=== PATIENT | female | born 1935 | race Caucasian/White ===

== ENCOUNTER 2017-01-16 02:57 | Inpatient (IN) | payer OTHER ==
[2017-01-14 09:53] LABS: MANUAL DIFF NEEDED? NO; URINE MICRO REVIEW NEEDED? NO; URINE SOURCE CLEAN CATCH
[2017-01-14 10:10] LABS: BILIRUBIN URINE NEGATIVE (NEGATIVE); BLOOD URINE NEGATIVE (NEGATIVE); COLOR YELLOW; GLUCOSE URINE NEGATIVE (NEGATIVE); LEUKOCYTES URINE NEGATIVE (NEGATIVE); NITRITE URINE NEGATIVE (NEGATIVE); PROTEIN URINE TRACE mg/dL (NEGATIVE); SP GRAVITY URINE 1.018; TURBIDITY URINE CLEAR (CLEAR); UR EPITHELIAL CELLS <10 /HPF (<10); URINE BACTERIA 2+ /HPF; URINE RBC <10 /HPF (<10); URINE WBC <10 /HPF (<10); UROBILINOGEN URINE NORMAL (NORMAL)
[2017-01-14 10:16] LABS: BASO% 0.7 % (0.0-0.8); EOS# 0.63 X1000 (0.0-0.7); EOS% 8.8 % (0.0-10.0); HEMATOCRIT 42.8 % (37.0-47.0); LYMPH# 2.26 X1000 (1.2-3.4); LYMPH% 31.4 % (20.5-51.1); MCHC 32.7 g/dL (33-37); MCV 91.8 FL (81-99); MONO# 0.86 X1000 (0.11-0.59); MPV 9.5 FL (7.4-10.4); NEUT% 47.1 % (42.2-75.2); PLT 324 X1000 (130-400); RBC 4.66 XMIL (4.2-5.4)
--- NOTE | 2017-01-14 10:28 | Diag Imaging Result Document ---
PROCEDURE NAME: CHEST-2 VIEWS - 01/14/2017 CHEST X-RAY 2 VIEWS, 01/14/2017: COMPARISON: 11/08/2010. FINDINGS: There is suggestion of some infiltrate or scarring at the cardiac apex probably in the lingula. The right lung is clear. Heart size and pulmonary vascularity is normal. No pneumothorax or pleural effusion. IMPRESSION: Infiltrate or atelectasis in the lingula.
[2017-01-14 10:58] LABS: ALBUMIN 4.1 g/dL (3.5-5.0); CALCIUM 9.3 mg/dL (8.8-10.2); POTASSIUM 4.6 mmol/L (3.5-5.1); TOTAL BILIRUBIN 0.44 mg/dL (0.20-1.00); TOTAL PROTEIN 7.4 g/dL (6.3-8.3)
--- NOTE | 2017-01-14 13:22 | EKG Report ---
Test Performed on : 01/14/2017 08:49:35 AM Test Reason : PAT Blood Pressure : / mmHG Vent. Rate : 075 BPM Atrial Rate : 075 BPM P-R Int : 164 ms QRS Dur : 080 ms QT Int : 396 ms P-R-T Axes : 017 021 040 degrees QTc Int : 442 ms Normal sinus rhythm. Normal ECG When compared with ECG of 08-NOV-2010 12:22, Criteria for Septal infarct are no longer present Confirmed by Andrea London MD ([id number]) on 01/16/2017 9:56:33 PM
[2017-01-16] MEDS ORDERED: MEFOXIN 1 GM/NS 50 ML IV ONE (07:55)
[2017-01-16] MEDS ORDERED: ZOFRAN ONE ×2 (07:58→13:43)
[2017-01-16] MEDS ORDERED: ENTEREG ONE (07:58)
[2017-01-16] MEDS ORDERED: LR 2,000 ML ONE (07:59)
[2017-01-16] MEDS ORDERED: REGLAN ONE (08:36)
[2017-01-16] MEDS ORDERED: PEPCID ONE (08:36)
[2017-01-16] MEDS ORDERED: TRANSDERM-SCOP ONE (08:37)
[2017-01-16] MEDS ORDERED: SODIUM CHLORIDE 0.9% 10 ML ONE (09:19)
[2017-01-16] MEDS ORDERED: MARCAINE 0.25% PF ONE (09:19)
[2017-01-16] MEDS ORDERED: EXPAREL 1.3% ONE (09:20)
[2017-01-16] MEDS ORDERED: VERSED ONE (09:37)
[2017-01-16] MEDS: FLAGYL 500 MG/NS 100 ML IV SCH ×2 (10:35→10:55)
[2017-01-16] MEDS ORDERED: D5 1/2 NS 1,000 ML ONE (13:03)
[2017-01-16] MEDS ORDERED: FENTANYL ONE (13:06)
[2017-01-16] MEDS ORDERED: DIPRIVAN 1% ONE (13:07)
[2017-01-16] MEDS ORDERED: MORPHINE PCA ONE (13:11)
[2017-01-16] MEDS ORDERED: NEOSTIGMINE ONE (13:43)
[2017-01-16] MEDS ORDERED: LR 3,000 ML ONE (13:44)
[2017-01-16] MEDS ORDERED: OFIRMEV 1000 MG/ISOTONIC SOLN 100 ML ONE (13:44)
[2017-01-16] MEDS ORDERED: QUELICIN (DOSE) ONE (13:44)
[2017-01-16] MEDS ORDERED: ROBINUL ONE (13:44)
[2017-01-16] MEDS ORDERED: DECADRON ONE (13:44)
[2017-01-16] MEDS ORDERED: NORCURON ONE (13:44)
[2017-01-16] MEDS: MORPHINE ONE ×4 (14:03→14:36)
--- NOTE | 2017-01-16 17:28 | OPERATIVE NOTE ---
PROCEDURE DATE: 01/16/2017 PREOPERATIVE DIAGNOSIS: Sigmoid diverticulitis. POSTOPERATIVE DIAGNOSIS: Sigmoid diverticulitis. PROCEDURE: 1. Cystoscopy with placement of bilateral ureteral catheters by Dr. Flores. This will be covered in a separate operative note. 2. Exploratory laparotomy. 3. Sigmoid resection with 28 mm end-to-end anastomosis. PROCEDURE: On completion of cystoscopy and placement of bilateral ureteral catheters, the patient's abdomen and perineum was prepped and draped in the appropriate manner. She had undergone general endotracheal anesthesia with placement of a orogastric tube and a Jaffe catheter and ureteral catheters. An infraumbilical to midline incision was taken sharply down through skin and subcutaneous tissue. Fascia was incised in the midline and the peritoneum was entered. The viscera were packed superiorly. Immediately evident was a wadded up sigmoid colon that was quite redundant and fixed. The adhesions were taken down sharply along the white line of T[place]. The left ureteral catheter was palpated. Eventually the colon itself was straightened out proximally in an area of relatively devoid of diverticula. The colon was divided with a pursestring device. The distal colon was taken down with LigaSure instruments. On reaching the superior hemorrhoidal's, the vessels were controlled by doubled 0 silk and suture ligatures of 2-0 silk. The colon was subsequently further mobilized down past the pelvic brim and was divided with a TA- 45 stapler. The wound was irrigated. There appeared to be no bleeding. The anvil had been tied into the pursestring device proximally. Initial attempts at transanal EEA anastomosis were unsuccessful secondary to further redundance, so another 2 inches of distal sigmoid was taken down. Subsequent to this, a satisfactory EEA anastomosis was performed. There were two satisfactory donuts. The [place] test was negative. The wound was subsequently irrigated and after accounting for all laparotomy sponges, closure was initiated. The omentum was pulled down over the anastomosis. The peritoneum was closed in a single running layer of #1 Vicryl. The fascia was closed with interrupted #1 Maxon. Subcutaneous was debrided and closed with 3-0 Vicryl and the skin itself with stainless steel clips. Sterile dressings were applied. The ureteral catheters were removed intact and the same length, and the Jaffe was left indwelling. There was some bloody urine. The patient was subsequently awakened and extubated in the operating room and transferred to recovery. ESTIMATED BLOOD LOSS: About 200 mL.
[2017-01-16] MEDS ORDERED: NARCAN IV PRN (18:41)
[2017-01-16] MEDS ORDERED: ZOFRAN IV PRN (18:41)
[2017-01-16] MEDS ORDERED: MORPHINE PCA IV PRN (18:41)
[2017-01-16] MEDS ORDERED: BENADRYL IV PRN (18:41)
[2017-01-16] MEDS ORDERED: PHENERGAN IV PRN (18:41)
[2017-01-16] MEDS ORDERED: SODIUM CHLORIDE 0.9% INJ PRN (18:41)
[2017-01-16] MEDS: MEFOXIN 1 GM/D5W 50 ML IV SCH (18:50)
[2017-01-16] MEDS: GLUCOSAMINE 500 MG/CHONDROITIN 400 MG PO SCH (21:50)
[2017-01-16] MEDS: FLAGYL 1000 MG/NS 200 ML IV SCH (21:50)
[2017-01-16] MEDS: PERIDEX MT SCH (21:50)
[2017-01-16] MEDS: XALATAN 0.005% OPH SOLN LEFT EYE SCH (21:50)
[2017-01-17] MEDS: MEFOXIN 1 GM/D5W 50 ML IV SCH ×2 (02:06→10:11)
[2017-01-17] MEDS: D5 1/2 NS 1,000 ML IV SCH ×4 (02:13→14:23)
[2017-01-17] MEDS: FLAGYL 1000 MG/NS 200 ML IV SCH ×2 (04:37→14:24)
[2017-01-17 05:47] LABS: HEMATOCRIT 30.7 % (37.0-47.0); HEMOGLOBIN 10.1 g/dL (12.0-16.0); LYMPH% 6.4 % (20.5-51.1); MANUAL DIFF NEEDED? YES; MCH 30.1 PG (27-31); MCHC 32.9 g/dL (33-37); MCV 91.4 FL (81-99); MONO% 7.2 % (1.7-9.3); MPV 9.2 FL (7.4-10.4); NEUT% 86.4 % (42.2-75.2); PLT 267 X1000 (130-400); RBC 3.36 XMIL (4.2-5.4)
[2017-01-17 06:12] LABS: CALCIUM 7.7 mg/dL (8.8-10.2); POTASSIUM 4.5 mmol/L (3.5-5.1)
[2017-01-17 06:36] LABS: BANDS 4 % (0-1); HYPOCHROM 1+; LYMPHS 8 % (21-51); MONO 4 % (1-9)
[2017-01-17] MEDS ORDERED: QUININE SULFATE PO SCH (09:00)
[2017-01-17] MEDS: PERIDEX MT SCH ×2 (10:08→23:34)
[2017-01-17] MEDS: GLUCOSAMINE 500 MG/CHONDROITIN 400 MG PO SCH ×2 (10:09→23:35)
[2017-01-17] MEDS: AVAPRO PO SCH (10:09)
[2017-01-17] MEDS: MOBIC PO SCH (10:09)
[2017-01-17] MEDS: PREMARIN PO SCH (10:09)
[2017-01-17] MEDS: ENTEREG PO SCH ×2 (10:10→23:35)
[2017-01-17] MEDS: BENTYL PO SCH (10:10)
[2017-01-17] MEDS ORDERED: TYLENOL PO PRN (18:51)
[2017-01-17] MEDS: XALATAN 0.005% OPH SOLN LEFT EYE SCH (23:34)
[2017-01-17] MEDS: QUININE SULFATE PO SCH (23:35)
[2017-01-18] MEDS: D5 1/2 NS 1,000 ML IV SCH (01:00)
[2017-01-18 06:01] LABS: MANUAL DIFF NEEDED? NO
[2017-01-18 06:10] LABS: BASO% 0.2 % (0.0-0.8); EOS# 0.06 X1000 (0.0-0.7); EOS% 0.5 % (0.0-10.0); HEMATOCRIT 27.9 % (37.0-47.0); HEMOGLOBIN 8.8 g/dL (12.0-16.0); LYMPH# 2.96 X1000 (1.2-3.4); LYMPH% 26.4 % (20.5-51.1); MCHC 31.5 g/dL (33-37); MCV 95.2 FL (81-99); MONO# 0.87 X1000 (0.11-0.59); MONO% 7.8 % (1.7-9.3); MPV 9.4 FL (7.4-10.4); NEUT% 65.1 % (42.2-75.2); PLT 228 X1000 (130-400); RBC 2.93 XMIL (4.2-5.4)
[2017-01-18 06:26] LABS: CALCIUM 7.5 mg/dL (8.8-10.2); POTASSIUM 3.7 mmol/L (3.5-5.1)
[2017-01-18] MEDS: GLUCOSAMINE 500 MG/CHONDROITIN 400 MG PO SCH ×2 (09:30→22:28)
[2017-01-18] MEDS: BENTYL PO SCH (09:31)
[2017-01-18] MEDS: ENTEREG PO SCH ×2 (09:31→22:28)
[2017-01-18] MEDS: MOBIC PO SCH ×2 (09:31→22:29)
[2017-01-18] MEDS: AVAPRO PO SCH (09:31)
[2017-01-18] MEDS: PREMARIN PO SCH (09:33)
[2017-01-18] MEDS ORDERED: D5 1/2 NS 1,000 ML IV SCH (10:00)
[2017-01-18] MEDS: PERIDEX MT SCH ×2 (11:10→22:30)
[2017-01-18] MEDS: NORCO-7.5 PO PRN ×3 (14:13→22:27)
[2017-01-18] MEDS: QUININE SULFATE PO SCH (22:30)
[2017-01-18] MEDS: XALATAN 0.005% OPH SOLN LEFT EYE SCH (22:30)
[2017-01-19] MEDS ORDERED: SALINE LOCK IV FLUID XX ONE (09:48)
[2017-01-19] MEDS ORDERED: DIFLUCAN PO ONE (09:52)
[2017-01-19] MEDS: AVAPRO PO SCH (10:38)
[2017-01-19] MEDS: GLUCOSAMINE 500 MG/CHONDROITIN 400 MG PO SCH ×2 (10:38→20:38)
[2017-01-19] MEDS: PERIDEX MT SCH (10:38)
[2017-01-19] MEDS: PREMARIN PO SCH (10:38)
[2017-01-19] MEDS: ENTEREG PO SCH ×2 (10:38→20:37)
[2017-01-19] MEDS: HEMOCYTE PLUS CAPSULE PO SCH ×3 (10:38→19:30)
[2017-01-19] MEDS: BENTYL PO SCH (10:40)
[2017-01-19] MEDS: NORCO-7.5 PO PRN ×2 (16:00→20:37)
[2017-01-19] MEDS: ZOFRAN PO PRN (20:36)
[2017-01-19] MEDS: QUININE SULFATE PO SCH (20:37)
[2017-01-19] MEDS: MOBIC PO SCH (20:37)
[2017-01-19] MEDS: XALATAN 0.005% OPH SOLN LEFT EYE SCH (20:38)
[2017-01-20] MEDS: NORCO-7.5 PO PRN ×3 (00:04→19:34)
[2017-01-20] MEDS: PERIDEX MT SCH ×3 (00:06→21:19)
[2017-01-20] MEDS: ZOFRAN PO PRN (07:50)
[2017-01-20] MEDS: GLUCOSAMINE 500 MG/CHONDROITIN 400 MG PO SCH ×2 (09:57→21:20)
[2017-01-20] MEDS: HEMOCYTE PLUS CAPSULE PO SCH (09:57)
[2017-01-20] MEDS: PREMARIN PO SCH (09:57)
[2017-01-20] MEDS: BENTYL PO SCH (09:57)
[2017-01-20] MEDS: AVAPRO PO SCH (09:57)
[2017-01-20] MEDS: ENTEREG PO SCH ×2 (09:57→21:20)
[2017-01-20] MEDS: MOBIC PO SCH (21:20)
[2017-01-20] MEDS: QUININE SULFATE PO SCH (21:20)
[2017-01-20] MEDS: XALATAN 0.005% OPH SOLN LEFT EYE SCH (21:20)
[2017-01-21] MEDS: NORCO-7.5 PO PRN ×2 (01:34→07:37)
--- NOTE | 2017-01-21 07:04 | OPERATIVE NOTE ---
PROCEDURE DATE: 01/16/2017 SURGEON: Dr. Phil Flores. DIAGNOSIS: Sigmoid diverticulitis. PRIMARY PROCEDURES: Cystoscopy, bilateral ureteral stent placement. INDICATIONS: A 81-year-old female who is a patient Dr. Rubin who presented with significant sigmoid diverticulitis. She is anticipating undergoing sigmoid colectomy. I was asked to assist with intraoperative identification of the ureters in the form of the ureteral stents. The patient was counseled on the risks and wants to proceed. FINDINGS: Successful stent placement. PROCEDURE IN DETAIL: After obtaining informed consent, the patient was brought to the operating room. Perioperative antibiotics and general endotracheal anesthesia were administered. She was placed in the lithotomy position, prepped and draped in a sterile fashion. A 21-[place] rigid cystoscope was used to gain access to the bladder which was then examined in a systematic fashion. She had no evidence of mucosal lesions, excessive trabeculations, or diverticula noted. We turned our attention to the left ureteral orifice which was cannulated with an open-ended 5-[place] ureteral catheter. It was advanced to approximately the 20 cm usha and the cystoscope was removed. We then placed the cystoscope again, introduced it alongside of the ureteral catheter back into the bladder. I turned my attention to the right ureteral orifice. It was cannulated with a 5-[place] open-ended ureteral catheter. It was in turn advanced to approximately the 20 cm usha. We retrieved the cystoscope then. A 16-[place] Jaffe catheter was introduced and placed to gravity drainage. Then 10 mL of sterile water were introduced into the balloon. We used an Angiocath needle and catheter guide to back-load the ureteral catheter into the Jaffe catheter at the side. This was done on the opposite side as well. Following that, both ureteral catheters and the Jaffe catheter were connected to the bag, placed to gravity drainage. Zero silk suture was then used to secure the ureteral catheters to the Jaffe catheter but without overtightening. I then turned the case over to Dr. Rubin. Please see his report for further details. ESTIMATED BLOOD LOSS: On my end was none. COMPLICATIONS: On my part are none. DISPOSITION: Again, to Dr. Rubin' care.
[2017-01-21 08:15] VITALS: BP 137/62
[2017-01-21] MEDS: ZOFRAN PO PRN (08:32)
[2017-01-21] MEDS: ENTEREG PO SCH (08:36)
[2017-01-21] MEDS: PERIDEX MT SCH (08:36)
[2017-01-21] MEDS: GLUCOSAMINE 500 MG/CHONDROITIN 400 MG PO SCH (08:36)
[2017-01-21] MEDS: AVAPRO PO SCH (08:36)
[2017-01-21] MEDS: PREMARIN PO SCH (08:36)
[2017-01-21] MEDS: HEMOCYTE PLUS CAPSULE PO SCH (08:36)
[2017-01-21] MEDS: BENTYL PO SCH (08:36)
--- NOTE | 2017-01-31 16:51 | DISCHARGE SUMMARY ---
ADMISSION DATE: 01/15/2017 DISCHARGE DATE: 01/21/2017 DISCHARGE DIAGNOSIS: Diverticulitis. PROCEDURE PERFORMED: 1. Cystoscopy with placement of bilateral ureteral catheters by Dr. Flores. 2. Sigmoid resection with EEA anastomosis. HOSPITAL COURSE: The patient is a 81-year-old, white female, bothered by recurrent bouts of diverticulitis with narrowing in the sigmoid colon. She was admitted for elective colon resection. She underwent an outpatient mechanical and chemical bowel prep. On the day of admission, Dr. Flores performed cystoscopy with placement of bilateral ureteral catheters. She subsequently underwent an uneventful sigmoid resection. Hospitalization was largely uneventful. She did have somewhat prolonged ileus, but did eventually have bowel movements, be passing gas and tolerated her dietary advancements after that. She was subsequently allowed home. She is going home with her daughter into [place], and will be seen in the office in 1 week's time. DISCHARGE MEDICATIONS: [place], Zofran, multivitamins and Colace.
== END 2017-01-21 13:19 | disposition home health service (06) | DRG 330 ==
LOC: SURHOLD 02:57 → 4N 15:31 → DIRADM 01-20 13:06 → 4N 01-20 13:09
PROVIDERS: ADMIT Surgery; ATTEND Surgery
PROC: 0DTN0ZZ Resection of Sigmoid Colon, Open Approach (ICD-10-PCS; principal; 2017-01-16 10:38)
PROC: 0T788DZ Dilation of Bilateral Ureters with Intraluminal Device, Via Natural or Artificial Opening Endoscopic (ICD-10-PCS; 2017-01-16 10:38)
DX: K57.32 Diverticulitis of large intestine without perforation or abscess without bleeding (principal); K91.89 Other postprocedural complications and disorders of digestive system; K56.7 Ileus, unspecified; I10 Essential (primary) hypertension; M19.90 Unspecified osteoarthritis, unspecified site; Z79.899 Other long term (current) drug therapy
CPT/HCPCS: 71020; 80048; 80053; 81001; 85025; 86850; 86900; 86901; 88307; 93005; 93010; 94761; C9290; J0131; J0330; J0694; J1100; J1200; J2250; J2270; J2405; J3010; J7120; 97116-GP; 97530-GP; J2710; S0020; S0030